=== PATIENT | male | born 1965 | race Caucasian/White ===

== ENCOUNTER 2018-01-05 02:18 | Inpatient (IN) | payer OTHER ==
[~2018-01-05] VITALS: Ht 177.8 cm; Wt 118.5 kg
[2018-01-05 02:45] LABS: HEMATOCRIT 46.9 % (38.0-50.0); HEMOGLOBIN 16.3 G/DL (12.5-16.6); MCH 32.7 PG (29.0-34.0); MCHC 34.8 G/DL (30.0-36.0); PLATELET COUNT 167 K/uL (156-360); RBC DIS.WIDTH-CV 13.7 % (11.8-14.6); RBC DIS.WIDTH-SD 47.2 % (39-53); RED BLOOD COUNT 4.99 M/uL (4.00-5.50); WHITE BLOOD COUNT 9.6 K/uL (4.1-10.2)
[2018-01-05 02:56] LABS: CHLORIDE 109 mEq/L (99-109); POTASSIUM 3.6 mEq/L (3.7-5.4); SODIUM 143 mEq/L (136-147)
[2018-01-05 02:58] LABS: GLUCOSE 113 mg/dL (70-99)
[2018-01-05 03:02] LABS: CREATININE 0.9 mg/dL (0.6-1.3); GFR ESTIMATE (CALCULATED) > 59 mL/min/ (58.99-99999)
[2018-01-05 03:03] LABS: UREA NITROGEN (BUN) 16 mg/dL (9-23)
[2018-01-05 03:07] LABS: TROP-I INTERPRETATION NEGATIVE; TROPONIN-I < 0.01 ng/mL (0.0-0.30)
[2018-01-05 06:29] LABS: TROP-I INTERPRETATION NEGATIVE; TROPONIN-I < 0.01 ng/mL (0.0-0.30)
[2018-01-05 08:43] LABS: APPEARANCE CLEAR ((CLEAR)); BILIRUBIN NEGATIVE; BLOOD SMALL; COLOR YELLOW ((YELLOW)); GLUCOSE (STRIP) NEGATIVE; KETONES NEGATIVE; LEUKOCYTES NEGATIVE; NITRITE NEGATIVE; PROTEIN (STRIP) NEGATIVE; SPECIFIC GRAVITY 1.021 (1.000-1.030); UROBILINOGEN 0.2 MG/DL (0.2-1.0)
[2018-01-05 08:44] LABS: BACTERIA NONE SEEN /HPF; EPITHELIAL CELLS RARE /HPF; MUCUS TRACE /LPF; RED BLOOD CELLS 0-5 /HPF (0-5); UCUL ADDED? NO; WHITE BLOOD CELLS 0-5 /HPF (0-5)
[2018-01-05 09:59] LABS: TROP-I INTERPRETATION NEGATIVE; TROPONIN-I < 0.01 ng/mL (0.0-0.30)
[2018-01-05] MEDS ORDERED: MULTIVITAMIN1 EAC2 PO (10:49)
[2018-01-05] MEDS ORDERED: ROSUVASTATIN CA10 MG PO (10:49)
[2018-01-05 16:30] VITALS: BP 118/72
[2018-01-05 18:02] LABS: TROP-I INTERPRETATION NEGATIVE; TROPONIN-I < 0.01 ng/mL (0.0-0.30)
[2018-01-05 19:45] VITALS: BP 106/53
[2018-01-05 23:50] VITALS: BP 112/58
[2018-01-06 03:35] VITALS: BP 129/72
[2018-01-06 07:01] LABS: HEMATOCRIT 38.8 % (38.0-50.0); MCH 32.2 PG (29.0-34.0); MCHC 33.8 G/DL (30.0-36.0); MCV 95.3 FL (86-99); RBC DIS.WIDTH-CV 13.8 % (11.8-14.6); RBC DIS.WIDTH-SD 48.6 % (39-53); RED BLOOD COUNT 4.07 M/uL (4.00-5.50); WHITE BLOOD COUNT 9.1 K/uL (4.1-10.2)
[2018-01-06 07:11] LABS: PLAT.SUFFICIENCY DECREASED
[2018-01-06 07:12] LABS: ALBUMIN 3.3 G/DL (3.2-4.8); ALKALINE PHOSPHATASE 41 IU/L (3-129); ALT (GPT) 14 IU/L (3-49); AST (GOT) 8 IU/L (2-34); CHLORIDE 108 MEQ/L (99-109); CREATININE 0.8 MG/DL (0.6-1.3); GFR ESTIMATE (CALCULATED) > 59 mL/min/ (58.99-99999); GLUCOSE 115 mg/dL (70-99); POTASSIUM 3.5 MEQ/L (3.7-5.4); SODIUM 141 MEQ/L (136-147); TOTAL BILIRUBIN 1.2 MG/DL (0.0-1.0); TOTAL PROTEIN 5.3 G/DL (6.4-8.3); UREA NITROGEN (BUN) 10 mg/dL (9-23)
[2018-01-06 07:30] VITALS: BP 113/66
[2018-01-06 07:44] LABS: HEMOGLOBIN 13.1 G/DL (12.5-16.6); PLATELET COUNT 111 K/uL (156-360)
[2018-01-06 10:03] LABS: HEMOGLOBIN A1c (GLYCOHEMOGLOB) 5.1 % (Below 5.7)
[2018-01-06 12:02] VITALS: BP 116/68
[2018-01-06] MEDS ORDERED: AUGMENTIN875 MG PO (12:13)
[2018-01-06 15:25] VITALS: BP 107/56
[2018-01-06 23:20] VITALS: BP 107/58
[2018-01-07 06:43] LABS: BASOPHIL (%) 0.3 % (0-1); EOSINOPHIL (%) 0.4 % (0-5); HEMATOCRIT 37.6 % (38.0-50.0); HEMOGLOBIN 12.2 G/DL (12.5-16.6); IMMATURE GRANULOCYTE (%) 0.1 % (0.0-0.7); LYMPHOCYTE (%) 19.5 % (15-42); LYMPHOCYTE COUNT 1.4 K/uL (1.0-2.8); MCH 31.2 PG (29.0-34.0); MCHC 32.4 G/DL (30.0-36.0); MCV 96.2 FL (86-99); MONOCYTE (%) 5.2 % (3-12); MONOCYTE COUNT 0.4 K/uL (0-0.8); NEUTROPHIL (%) 74.5 % (45-76); NEUTROPHIL COUNT 5.3 K/uL (1.8-6.4); PLATELET COUNT 108 K/uL (156-360); RBC DIS.WIDTH-CV 14.1 % (11.8-14.6); RBC DIS.WIDTH-SD 49.9 % (39-53); RED BLOOD COUNT 3.91 M/uL (4.00-5.50); WHITE BLOOD COUNT 7.1 K/uL (4.1-10.2)
[2018-01-07 07:12] LABS: CHLORIDE 112 MEQ/L (99-109); CREATININE 0.7 MG/DL (0.6-1.3); GFR ESTIMATE (CALCULATED) > 59 mL/min/ (58.99-99999); GLUCOSE 116 mg/dL (70-99); POTASSIUM 3.8 MEQ/L (3.7-5.4); SODIUM 143 MEQ/L (136-147); UREA NITROGEN (BUN) 10 mg/dL (9-23)
[2018-01-07 07:55] VITALS: BP 111/67
[2018-01-07] MEDS ORDERED: AMBIEN5 MG PO (11:07)
[2018-01-07] MEDS ORDERED: VENTOLIN HFA18 GM IH (11:08)
== END 2018-01-07 13:30 | disposition home or self-care (01) | DRG 189 ==
LOC: EME 02:18 → 2EAST 07:49 → EDOF 07:49 → CANRESERV 07:50 → ENRESERV 07:50 → EDOF 08:42 → ENRESERV 08:44 → 2EAST 16:39
PROVIDERS: Emergency Medicine; Internal Medicine
PROC: 5A09357 Assistance with Respiratory Ventilation, Less than 24 Consecutive Hours, Continuous Positive Airway Pressure (ICD-10-PCS; principal; 2018-01-05)
DX: J96.01 Acute respiratory failure with hypoxia (principal); J69.0 Pneumonitis due to inhalation of food and vomit; G47.33 Obstructive sleep apnea (adult) (pediatric); Z99.81 Dependence on supplemental oxygen; A08.4 Viral intestinal infection, unspecified; D69.6 Thrombocytopenia, unspecified; E87.2 Acidosis; E87.6 Hypokalemia; K22.70 Barrett's esophagus without dysplasia; K21.9 Gastro-esophageal reflux disease without esophagitis; E78.5 Hyperlipidemia, unspecified; D64.9 Anemia, unspecified; E66.9 Obesity, unspecified; Z68.37 Body mass index [BMI] 37.0-37.9, adult; F17.200 Nicotine dependence, unspecified, uncomplicated; Z80.0 Family history of malignant neoplasm of digestive organs; Z80.6 Family history of leukemia
CPT/HCPCS: 71046; 71275; 80048; 80053; 81003; 83036; 83605; 83630; 83735; 84484; 85025; 85027; 85379; 87040; 87502; 93005; 93970; 94640; 94640 76; 94799; 99202; 99281; 99285; C9113; J0295; J1650; J2405; J3480; J7030; J7040; J7050; S0028; S0030